=== PATIENT | male | born 1990 | race African-American/Black ===

== ENCOUNTER 2022-02-17 20:17 | Observation (INO) ==
[2022-02-17] MEDS ORDERED: SODIUM CHLORIDE 0.9% 1000ML 1,000 ML IV ONE (20:24)
--- NOTE | 2022-02-17 20:28 | Emergency Department Note ---
Impression & Plan Substernal chest pain, Elevated troponin, Swelling of calf ED Provider Note Name: KE [id number] DEMOND Age: 31 Sex: M Arrives Via: Ambulance Informant: Patient, EMS ED Provider: Emiliano Sexton MD Chief Complaint: Chest Pain Impression: Chest pain Medical Decision Makin-year-old gentleman who reports a history of heart surgery though this is somewhat unclear and he does not recall what it was. He arrives for evaluation of chest pain and shortness of breath in the setting of left calf pain. Given the calf pain and swelling with his other symptoms and the fact he is in [facility] it was felt that a CT PE study was indicated without waiting for D-dimer. CT PE study is fortunately negative. Ultrasound of left leg reveals no DVT. Is unclear the cause of his calf swelling but he does have a slight bruise anterior it and this may just be trauma related. And is not compartment syndrome. As for the chest pain his EKG is normal however his initial troponin is elevated. It is not severely elevated but is above normal. With him not having any further chest pain and already having received aspirin I think is reasonable to hold off on heparin until further work-up is completed including a repeat troponin for cardiac rule out. Hospitalist was consulted for further management. Prior Medical Record and Triage/Nursing Notes reviewed by Me Additional history obtained from chart Differentials:Cardiac ischemia, aortic dissection, pulmonary embolism, pneumothorax, pneumonia, pericarditis, myocarditis, esophageal rupture, GERD, cholecystitis, pancreatitis, musculoskeletal, as well as other pathologies. Vital Signs: reviewed and remarkable for no significant abnormalities Labs:Reviewed and remarkable for elevated troponin Imaging:CTA chest no acute findings as per radiology, ultrasound left lower leg no evidence of DVT per radiology EKG:Per My Interpretation: Indication Chest Pain: NSR 71 bpm, qtc 415. No Ectopy. No Ischemia. Compared to EKG 04/06/19, no significant changes. Cardiac/Tele Monitoring: Cardiac Monitoring: An Order was placed for continuous cardiac monitoring. The monitor shows a rate of 70 with a normal sinus rhythm. Consults:Dr Monique Roe Hospitalist Plan: Disposition:Hospitalization. Condition: Good History of Present Illness: 31-year-old gentleman arrives for evaluation of chest pain. Patient notes on and off vague chest pains for the last few weeks and months. Over the last few days significantly worsening chest pain or shortness of breath. He notes its worse when he ambulates. Today he noted increasing swelling in the left leg. He notes the pain is primarily in the left calf. It hurts to walk. [facility] and he was sent here for further evaluations. He received aspirin prior to arrival. EMS noted that with exertion patient's oxygen dropped into the 80s and thus they put him on 2 L nasal cannula with improvement. Patient denies any current chest pain. He states his leg just feels slightly numb at the moment. He denies any abdominal pain, back pain, syncope, rashes, fevers, chills, he adache, neck pain or other signs or symptoms. He states he has not been in any recent fights or had any trauma. He denies a history of blood clots. ROS: See above HPI for pertinent positives & negatives. A total of 10 systems reviewed and were otherwise negative. 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 EYES: No scleral icterus, unremarkable pupils. ENT: Mucous membranes moist, no nasal congestion. NECK: No masses appreciated, nomeningismus, trachea is midline. RESPIRATORY: No dyspnea. Clear to auscultation and equal bilaterally. No wheeze, no rhonchi. CARDIOVASCULAR: Regular rate and rhythm.No murmurs, rubs, gallops appreciated. GASTROINTESTINAL: Abdomen soft, non-tender, no peritonitis.Bowel sounds positive.No masses appreciated. BACK: No midline tenderness, no CVA tenderness EXTREMITIES: Swollen tender left calf without compartment syndrome by exam, good distal sensation & pulses. Just anterior to this is age indeterminant bruise. Normal motion all extremities, no cyanosis NEUROLOGIC: Alert and oriented, no acute motor or sensory deficits, no focal weakness, cranial nerves grossly intact. SKIN: No rash, no jaundice, no diaphoresis. PSYCH: Appropriate GCS: 15 ED Course: Times/Reassessments: Sedation plan given the elevated troponin and chest pain earlier Emiliano Sexton MD Past Med/Surg History Medical History (Updated 02/18/22 @ 01:02 by Emiliano Sexton MD) Anxiety Surgical History (Updated 04/06/19 @ 13:43 by Diana Engel) History of hand surgery Social History Smoking Status: Never smoker Preferred Language: Estonian Feels Safe at Home: Yes Allergies Allergies Allergy/AdvReac Type Severity Reaction Status Date / Time No Known Allergies Allergy Unverified 02/17/22 21:44 Home Meds Home Medications Medication Instructions Recorded Confirmed diclofenac sodium 25 mg 25 mg PO TID PRN 02/17/22 02/17/22 tablet,delayed release lisinopril 5 mg tablet 5 mg PO DAILY 02/17/22 02/17/22 mirtazapine 30 mg tablet 30 mg PO HS 02/17/22 02/17/22 olanzapine 15 mg tablet 15 mg PO HS 02/17/22 02/17/22 paroxetine HCl 20 mg tablet 20 mg PO DAILY 02/17/22 02/17/22 paroxetine HCl 30 mg tablet 30 mg PO HS 02/17/22 02/17/22 Results & Data (ED) Vital Signs Vital Signs - 24 hr 02/17/22 20:21 02/17/22 20:30 02/17/22 21:30 Temperature 37.1 C Temperature Source Oral Pulse Rate 78 76 68 Pulse Rate from SpO2 Sensor 69 Respiratory Rate 18 19 15 Respiratory Effort / Characteristics Non-Labored Spontaneous Respiratory Depth Normal Respiratory Pattern Regular Blood Pressure 168/90 H 145/78 H 148/72 H Blood Pressure Mean 116 100 97 Pulse Oximetry 97 98 98 Oxygen Delivery Method Room Air Sepsis Recent Fever Within 48 Hours No Sepsis New/Unexplained Change in Mental Status N/A Sepsis Action Taken by Nursing No Action Required 02/17/22 22:06 02/17/22 22:12 02/17/22 22:30 Temperature Temperature Source Pulse Rate 71 61 68 Pulse Rate from SpO2 Sensor 66 Respiratory Rate 20 13 13 Respiratory Effort / Characteristics Respiratory Depth Respiratory Pattern Blood Pressure 124/73 124/73 115/68 Blood Pressure Mean 90 90 83 Pulse Oximetry 95 99 Oxygen Delivery Method Sepsis Recent Fever Within 48 Hours Sepsis New/Unexplained Change in Mental Status Sepsis Action Taken by Nursing 02/17/22 23:00 02/17/22 23:30 02/18/22 00:00 Temperature Temperature Source Pulse Rate 73 65 65 Pulse Rate from SpO2 Sensor 73 65 65 Respiratory Rate 19 16 15 Respiratory Effort / Characteristics Respiratory Depth Respiratory Pattern Blood Pressure 123/82 120/72 Blood Pressure Mean 95 88 Pulse Oximetry 99 100 100 Oxygen Delivery Method Sepsis Recent Fever Within 48 Hours Sepsis New/Unexplained Change in Mental Status Sepsis Action Taken by Nursing Laboratory Data Result diagrams: 02/17/22 20:30 02/17/22 20:30 Lab Results 02/17/22 02/17/22 02/17/22 Range/Units 20:30 20:30 20:30 WBC 7.87 (4.8-10.8) K/uL RBC 4.81 (4.7-6.1) M/uL Hgb 14.8 (14.0-18.0) g/dL POC Hgb (14.0-18.0) g/dl Hct 42.0 (42-52) % POC Hct (42-52) % MCV 87.3 (80-100) fL MCH 30.8 (25-34) pg MCHC 35.2 (32-36) g/dL RDW Std Deviation 46.5 H (36.4-46.3) fL RDW Coeff of Ibeth 14.5 (11.5-14.5) % Plt Count 236 (130-400) K/uL MPV 10.3 (7.4-10.4) fL Immature Gran % (Auto) 0.1 % Neut % (Auto) 61.3 % Lymph % (Auto) 30.9 % [place] % (Auto) 5.3 % Eos % (Auto) 2.3 % Baso % (Auto) 0.1 % Neut # (Auto) 4.82 (1.4-6.5) K/uL Lymph # (Auto) 2.43 (1.2-3.4) K/uL [place] # (Auto) 0.42 (0.11-0.59) K/uL Eos # (Auto) 0.18 (0-0.5) K/uL Baso # (Auto) 0.01 (0-0.2) K/uL Immature Gran # (Auto) 0.01 (0.00-0.02) K/uL APTT 25.3 (21.0-31.0) Seconds PTT Ratio 0.9 POC Sodium (135-144) mmol/L Sodium 135 L (136-145) mmol/L POC Potassium (3.3-5.0) mmol/L Potassium 4.0 (3.5-5.1) mmol/L POC Chloride (101-112) mmol/L Chloride 101 (98-107) mmol/L Carbon Dioxide 25 (21-32) mmol/L POC Total CO2 (24-31) mmol/L Anion Gap 9 (3-11) POC Anion Gap (16-25) mmol/L POC BUN (7-18) mg/dl BUN 14 (6-23) mg/dl Creatinine 1.21 (0.6-1.4) mg/dl POC Creatinine (0.6-1.3) mg/dl Est Cr Clr Drug Dosing 84.0 ml/min Est GFR ( Amer) 90.6 ml/min Est GFR (Non-Af Amer) 78.2 ml/min BUN/Creatinine Ratio 11.6 (10-20) Glucose 88 (70-99(Fasting)) mg/dl POC Glucose (other) (70-99) mg/dl Calcium 9.7 (8.5-10.1) mg/dl POC Ioniz Calcium [place] (1.12-1.32) mmol/l Magnesium 2.0 (1.7-2.4) mg/dl Total Bilirubin 0.6 (0.2-1.0) mg/dl Direct Bilirubin 0.1 (0-0.2) mg/dl AST 29 (13-39) U/L ALT 28 (7-52) U/L Alkaline Phosphatase 85 (34-104) U/L Troponin I High Sens 35.4 H (0-20) pg/ml Total Protein 8.1 (6.0-8.3) gm/dl Albumin 4.7 (3.4-5.0) gm/dl SARS-CoV-2, RNA, NAAT (NEGATIVE) 02/17/22 02/17/22 02/18/22 Range/Units 20:49 23:00 00:00 WBC (4.8-10.8) K/uL RBC (4.7-6.1) M/uL Hgb (14.0-18.0) g/dL POC Hgb 16.0 (14.0-18.0) g/dl Hct (42-52) % POC Hct 47 (42-52) % MCV (80-100) fL MCH (25-34) pg MCHC (32-36) g/dL RDW Std Deviation (36.4-46.3) fL RDW Coeff of Ibeth (11.5-14.5) % Plt Count (130-400) K/uL MPV (7.4-10.4) fL Immature Gran % (Auto) % Neut % (Auto) % Lymph % (Auto) % [place] % (Auto) % Eos % (Auto) % Baso % (Auto) % Neut # (Auto) (1.4-6.5) K/uL Lymph # (Auto) (1.2-3.4) K/uL [place] # (Auto) (0.11-0.59) K/uL Eos # (Auto) (0-0.5) K/uL Baso # (Auto) (0-0.2) K/uL Immature Gran # (Auto) (0.00-0.02) K/uL APTT (21.0-31.0) Seconds PTT Ratio POC Sodium 138 (135-144) mmol/L Sodium (136-145) mmol/L POC Potassium 3.9 (3.3-5.0) mmol/L Potassium (3.5-5.1) mmol/L POC Chloride 103 (101-112) mmol/L Chloride (98-107) mmol/L Carbon Dioxide (21-32) mmol/L POC Total CO2 25 (24-31) mmol/L Anion Gap (3-11) POC Anion Gap 15.0 L (16-25) mmol/L POC BUN 14 (7-18) mg/dl BUN (6-23) mg/dl Creatinine (0.6-1.4) mg/dl POC Creatinine 1.1 (0.6-1.3) mg/dl Est Cr Clr Drug Dosing ml/min Est GFR ( Amer) ml/min Est GFR (Non-Af Amer) ml/min BUN/Creatinine Ratio (10-20) Glucose (70-99(Fasting)) mg/dl POC Glucose (other) 94 (70-99) mg/dl Calcium (8.5-10.1) mg/dl POC Ioniz Calcium Kareem 1.14 (1.12-1.32) mmol/l Magnesium (1.7-2.4) mg/dl Total Bilirubin (0.2-1.0) mg/dl Direct Bilirubin (0-0.2) mg/dl AST (13-39) U/L ALT (7-52) U/L Alkaline Phosphatase (34-104) U/L Troponin I High Sens 29.0 H (0-20) pg/ml Total Protein (6.0-8.3) gm/dl Albumin (3.4-5.0) gm/dl SARS-CoV-2, RNA, NAAT NEGATIVE (NEGATIVE) Administered Medications Discontinued Medications Sodium Chloride (Nss 1000ml) 1,000 mls @ 999 mls/hr IV .Q1H1M ONE Stop: 02/17/22 21:24 Last Infusion: 02/17/22 22:01 Dose: 0 mls/hr Documented by: [id number] Admin: 02/17/22 21:00 Dose: 999 mls/hr Documented by: [id number] Ioversol (Optiray 320 125ml) 120 ml IV ONCE ONE Stop: 02/17/22 21:10 Last Admin: 02/17/22 21:10 Dose: 120 ml Documented by: [id number] Discharge Plan Visit Data Chief Complaint: Leg Injury/Pain Stated Complaint: Chest Pain, L Leg Pain, Swelling ED Provider: Emiliano Sexton Discharge Problem: Substernal chest pain, Elevated troponin, Swelling of calf Forms [facility] Prescriptions Prescriptions: No Action paroxetine HCl 30 mg Tablet 30 mg PO HS RF: 0 paroxetine HCl 20 mg Tablet 20 mg PO DAILY RF: 0 mirtazapine 30 mg Tablet 30 mg PO HS RF: 0 diclofenac sodium [Voltaren] 25 mg Tablet,Delayed Release (Dr/Ec) 25 mg PO TID PRN (Reason: Pain) RF: 0 olanzapine 15 mg Tablet 15 mg PO HS RF: 0 lisinopril 5 mg Tablet 5 mg PO DAILY RF: 0 Referrals Referrals: Chantal YNAES [Primary Care Provider] -
[2022-02-17 20:48] LABS: Basophils # (auto) 0.01 K/uL (0-0.2); Basophils % (auto) 0.1 %; Eosinophils # (auto) 0.18 K/uL (0-0.5); Eosinophils % (auto) 2.3 %; Hemoglobin 14.8 g/dL (14.0-18.0); Immature Granulocytes # (auto) 0.01 K/uL (0.00-0.02); Immature Granulocytes % (auto) 0.1 %; Lymphocytes # (auto) 2.43 K/uL (1.2-3.4); Lymphocytes % (auto) 30.9 %; Mean Corpuscular Hemoglobin 30.8 pg (25-34); Mean Corpuscular Hgb Conc 35.2 g/dL (32-36); Mean Corpuscular Volume 87.3 fL (80-100); Mean Platelet Volume 10.3 fL (7.4-10.4); Monocytes # (auto) 0.42 K/uL (0.11-0.59); Monocytes % (auto) 5.3 %; Neutrophils # (auto) 4.82 K/uL (1.4-6.5); Neutrophils % (auto) 61.3 %; Platelet Count 236 K/uL (130-400); RDW Coefficient of Variation 14.5 % (11.5-14.5); RDW Standard Deviation 46.5 fL (36.4-46.3); Red Blood Count 4.81 M/uL (4.7-6.1); White Blood Count 7.87 K/uL (4.8-10.8)
[2022-02-17 21:02] LABS: iSTAT Creatinine 1.1 mg/dl (0.6-1.3); iSTAT Ionized Calcium 1.14 mmol/l (1.12-1.32); iSTAT Potassium 3.9 mmol/L (3.3-5.0)
[2022-02-17] MEDS ORDERED: OPTIRAY 320 125ml IV ONE (21:09)
[2022-02-17 21:15] LABS: Albumin Level 4.7 gm/dl (3.4-5.0); BUN Creatinine Ratio 11.6 (10-20); Bilirubin Direct 0.1 mg/dl (0-0.2); Bilirubin,Total 0.6 mg/dl (0.2-1.0); Calcium 9.7 mg/dl (8.5-10.1); Est GFR (African American) 90.6 ml/min; Est GFR (Non-African American) 78.2 ml/min; Total Protein 8.1 gm/dl (6.0-8.3)
[2022-02-17 21:18] LABS: Troponin I High Sensitivity 35.4 pg/ml (0-20)
[2022-02-17 23:52] LABS: Partial Thromboplastin Ratio 0.9; Partial Thromboplastin Time 25.3 Seconds (21.0-31.0)
[2022-02-18] MEDS ORDERED: ACETAMINOPHEN 325 MG TAB PO STA (01:01)
--- NOTE | 2022-02-18 01:01 | History & Physical Report ---
Date of Service February 18, 2022 Assessment & Plan (1) Substernal chest pain: Plan: With troponin elevation 8 months duration as per patient Possible ACS hypertension, slightly elevated upon arrival at the ER Abdominal pain from constipation anxiety/mood disorder, at baseline chronic L GIB secondary to internal hemorrhoids, patient hemodynamically stable Focal cellulitis, LLE, no sepsis for now past tobacco abuse OBS PCU Aspirin for CAD prevention TTE, Cardiology consult Re: Chest pain with troponin elevation Bowel regimen Doxycycline for focal LLE cellulitis DVT prophylaxis. SCDs Re: L GIB, left calf bruising Full code Text document was generated using [employer] voice recognition software. It may contain grammatical or spelling errors. Kindly contact undersigned for clarification of any documentation item in question. History of Present Illness Chief Complaint: Chest pain Primary Care Provider: FARZANA Cornejo History obtained from patient and records. Medical history significant for hypertension, anxiety/mood disorder, internal hemorrhoids, past tobacco abuse. 8 months history of intermittent achy chest pain complaints with occasional shortness of breath lasting less than an hour. Can happen even at rest. Symptoms almost daily. 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 He was told that he had abnormal heartbeat. No cardiology consultations as per patient. Abdominal pain complaints in the last few weeks with constipation. Daily hematochezia attributed to internal hemorrhoids from outpatient colonoscopy from 2019 as per patient. Patient claims he lost 10 pounds in 2 weeks. Patient also not this left leg swelling and bruising. Not sure about trauma. Patient brought to the ER for evaluation. Currently chest pain-free. 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 [facility] Allergies Allergy/AdvReac Type Severity Reaction Status Date / Time No Known Allergies Allergy Unverified 02/17/22 21:44 Home Medications Medication Instructions Recorded Confirmed Type diclofenac sodium 25 mg 25 mg PO TID PRN 02/17/22 02/17/22 History tablet,delayed release lisinopril 5 mg tablet 5 mg PO DAILY 02/17/22 02/17/22 History mirtazapine 30 mg tablet 30 mg PO HS 02/17/22 02/17/22 History olanzapine 15 mg tablet 15 mg PO HS 02/17/22 02/17/22 History paroxetine HCl 20 mg tablet 20 mg PO DAILY 02/17/22 02/17/22 History paroxetine HCl 30 mg tablet 30 mg PO HS 02/17/22 02/17/22 History Past Med/Surg History Medical History (Updated 02/18/22 @ 01:02 by Emiliano Sexton MD) Anxiety Surgical History (Updated 04/06/19 @ 13:43 by Diana Engel) History of hand surgery Social History Smoking Status: Former smoker Hx Alcohol Use: No Hx Substance Use: Yes Preferred Language: Citizen Of [place] Communication Ability: Effective Hair Stylist Required: No Beliefs That Will Affect Care: None Current Living Situation: Other Current Living Situation Comment: Inmate Feels Safe at Home: Yes Review of Systems Review of Systems: As per HPI, all other systems reviewed and negative Physical Exam Physical Exam: GENERAL: Slightly anxious, slightly uncomfortable, no respiratory distress SKIN: Normal color, warm HEENT: [place] palpebral conjunctivae, no ptosis, dry buccal mucosa NECK : Supple, no tenderness CHEST : CTA, no tenderness HEART : RRR, no obvious murmurs ABDOMEN: Some distention, central abdominal tenderness EXTREMITIES : Focal LLE erythema anterior aspect with bruising noted over the calf, minimal LLE tenderness NEUROLOGIC : Coherent, no facial asymmetry, no other gross focality Results & Data Results & Data ([facility]) Vital Signs (Past 12 Hours) Vital Signs Temp Pulse Resp BP Pulse Ox 02/18/22 00:00 65 15 100 02/17/22 23:30 65 16 120/72 100 02/17/22 23:00 73 19 123/82 99 02/17/22 22:30 68 13 115/68 99 02/17/22 22:12 61 13 124/73 02/17/22 22:06 71 20 124/73 95 02/17/22 21:30 68 15 148/72 H 98 02/17/22 20:30 76 19 145/78 H 98 02/17/22 20:21 37.1 C 78 18 168/90 H 97 Laboratory Results Laboratory Results WBC 7.87 K/uL (4.8-10.8) 02/17/22 20:30 RBC 4.81 M/uL (4.7-6.1) 02/17/22 20:30 Hgb 14.8 g/dL (14.0-18.0) 02/17/22 20:30 POC Hgb 16.0 g/dl (14.0-18.0) 02/17/22 20:49 Hct 42.0 % (42-52) 02/17/22 20:30 POC Hct 47 % (42-52) 02/17/22 20:49 MCV 87.3 fL (80-100) 02/17/22 20: MCH 30.8 pg (25-34) 02/17/22 20: MCHC 35.2 g/dL (32-36) 02/17/22 20: RDW Std Deviation 46.5 fL (36.4-46.3) H 02/17/22: RDW Coeff of Ibeth 14.5 % (11.5-14.5) 02/17/22 20: Plt Count 236 K/uL (130-400) 02/17/22 20: MPV 10.3 fL (7.4-10.4) 02/17/22 20: Immature Gran % (Auto) 0.1 % 02/17/22 20:30 Neut % (Auto) 61.3 % 02/17/22 20:30 Lymph % (Auto) 30.9 % 02/17/22 20:30 [place] % (Auto) 5.3 % 02/17/22 20:30 Eos % (Auto) 2.3 % 02/17/22 20:30 Baso % (Auto) 0.1 % 02/17/22 20:30 Neut # (Auto) 4.82 K/uL (1.4-6.5) 02/17/22 20: Lymph # (Auto) 2.43 K/uL (1.2-3.4) 02/17/22 20:30 [place] # (Auto) 0.42 K/uL (0.11-0.59) 02/17/22 20:30 Eos # (Auto) 0.18 K/uL (0-0.5) 02/17/22 20:30 Baso # (Auto) 0.01 K/uL (0-0.2) 02/17/22 20:30 Immature Gran # (Auto) 0.01 K/uL (0.00-0.02) 02/17/22 20:30 APTT 25.3 Seconds (21.0-31.0) 02/17/22 20:30 PTT Ratio 0.9 02/17/22 20:30 POC Sodium 138 mmol/L (135-144) 02/17/22 20:49 Sodium 135 mmol/L (136-145) L 02/17/22 20:30 POC Potassium 3.9 mmol/L (3.3-5.0) 02/17/22 20:49 Potassium 4.0 mmol/L (3.5-5.1) 02/17/22 20:30 POC Chloride 103 mmol/L (101-112) 02/17/22 20:49 Chloride 101 mmol/L (98-107) 02/17/22 20:30 Carbon Dioxide 25 mmol/L (21-32) 02/17/22 20:30 POC Total CO2 25 mmol/L (24-31) 02/17/22 20:49 Anion Gap 9 (3-11) 02/17/22 20:30 POC Anion Gap 15.0 mmol/L (16-25) L 02/17/22 20:49 POC BUN 14 mg/dl (7-18) 02/17/22 20:49 BUN 14 mg/dl (6-23) 02/17/22 20:30 Creatinine 1.21 mg/dl (0.6-1.4) 02/17/22 20:30 POC Creatinine 1.1 mg/dl (0.6-1.3) 02/17/22 20:49 Est Cr Clr Drug Dosing 84.0 ml/min 02/17/22 20:30 Est GFR ( Amer) 90.6 ml/min 02/17/22 20:30 Est GFR (Non-Af Amer) 78.2 ml/min 02/17/22 20:30 BUN/Creatinine Ratio 11.6 (10-20) 02/17/22 20:30 Glucose 88 mg/dl (70-99(Fasting)) 02/17/22 20:30 POC Glucose (other) 94 mg/dl (70-99) 02/17/22 20:49 Calcium 9.7 mg/dl (8.5-10.1) 02/17/22 20:30 POC Ioniz Calcium Kareem 1.14 mmol/l (1.12-1.32) 02/17/22 20:49 Magnesium 2.0 mg/dl (1.7-2.4) 02/17/22 20:30 Total Bilirubin 0.6 mg/dl (0.2-1.0) 02/17/22 20:30 Direct Bilirubin 0.1 mg/dl (0-0.2) 02/17/22 20:30 AST 29 U/L (13-39) 02/17/22 20:30 ALT 28 U/L (7-52) 02/17/22 20:30 Alkaline Phosphatase 85 U/L (34-104) 02/17/22 20:30 Troponin I High Sens 29.0 pg/ml (0-20) H 02/18/22 00:00 Total Protein 8.1 gm/dl (6.0-8.3) 02/17/22 20: Albumin 4.7 gm/dl (3.4-5.0) 02/17/22 20:30 SARS-CoV-2, RNA, NAAT NEGATIVE (NEGATIVE) 02/17/22 23:[address] chest initial read: The pulmonaryarterial tree iswell opacified with contrast. No pulmonaryemboli are identified. The thoracic aorta is nondilated. There is no aneurysmor dissection. The heart is not enlarged. No pericardial effusion. No mediastinal or axillarylymph adenopathyor mass. The lungs are well inflated and clear. No infiltrate or consolidation is seen. No pneumothorax or pleural effusion. Skeletal structures appear unremarkable. CT abdomen pelvis initial read No acute findings in the abdomen and pelvis on noncontrast CT study. No evidence of bowel obstruction or perforation. No evidence of acute appendicitis. Limited evaluation of pelvic region due to high densityexcreted contrast in the urinarybladder and resultant streak artifact. CT left lower leg initial read: No evidence of acute fracture or traumatic malalignment. No destructive osseous lesion. Soft tissue edemawith subcutaneous fat stranding in lateral aspect of the proximal leg. No discrete fluid collection visualized. No soft tissue gas. Normal bulk of the visualized muscles. No knee joint effusion. LLE venous Dopplers initial read: No evidence of deep venous thrombosis. EKG as per my interpretation: Rate 70, NSR, normal axis, no ischemia
[2022-02-18] MEDS ORDERED: traMADol HCL 50 MG TABLET PO PRN (01:06)
[2022-02-18] MEDS ORDERED: LORazepam 2 MG/1 ML VIAL IV PRN (01:06)
[2022-02-18] MEDS ORDERED: PROMETHAZINE HCL 12.5 MG in SODIUM CHLORIDE 0.9% 50 ML IV PRN (01:06)
[2022-02-18] MEDS ORDERED: MoRPHine SULFATE 2 MG/ML CARP IV PRN (01:06)
[2022-02-18] MEDS ORDERED: SODIUM CHLORIDE 0.9% 1000ML 1,000 ML IV ONE (01:07)
[2022-02-18] MEDS ORDERED: NITROGLYCERIN SL 0.4 MG/TAB TAB SL PRN (02:41)
[2022-02-18] MEDS ORDERED: ACETAMINOPHEN 325 MG TAB PO PRN (02:41)
[2022-02-18 03:11] LABS: Appearance Urine Clear (Clear); Bilirubin Urine Negative (Negative); Blood Urine Negative (Negative); Color Urine Yellow; Glucose Urine UA Negative (Negative); Ketones Urine Negative (Negative); Leukocyte Esterase Urine Negative (Negative); Nitrite Urine Negative (Negative); Protein Urine Negative (Negative); Specific Gravity Urine > 1.045 (1.000-1.030); Urobilinogen Urine Negative (Negative); pH Urine 5.5 (4.5-7.5)
[2022-02-18] MEDS ORDERED: POLYETHYLENE (MIRALAX) 17 GM PACK PO PRN (05:33)
[2022-02-18] MEDS: DOXYCYCLINE HYCLATE 100 MG CAP PO SCH ×2 (05:38→22:36)
[2022-02-18] MEDS: ASPIRIN 81 MG ECTAB PO SCH (05:38)
[2022-02-18] MEDS ORDERED: DOCUSATE SODIUM/SENNA 50/8.6MG TAB PO STA (06:06)
--- NOTE | 2022-02-18 07:02 | Ultrasound Report ---
LEFT LOWER EXTREMITY VENOUS DOPPLER CLINICAL HISTORY: left calf swelling, pain COMPARISON STUDY: No previous studies for comparison. TECHNIQUE: Sonography of the deep venous system of the left lower extremity was performed. Compressi on and augmentation were evaluated. FINDINGS: The left common femoral, superficial femoral and popliteal veins were compressible. Augmen tation was normal. Flow was shown within the deep calf vessels. IMPRESSION: No evidence of deep venous thrombus within the left lower extremity. ACT 112: Negative or not required by law. Electronically signed by: Zain Skaggs M.D. 02/18/2022 7:00 AM
[2022-02-18 07:29] LABS: Basophils # (auto) 0.02 K/uL (0-0.2); Basophils % (auto) 0.4 %; Eosinophils # (auto) 0.22 K/uL (0-0.5); Eosinophils % (auto) 4.7 %; Hematocrit (blood only) 39.4 % (42-52); Hemoglobin 13.5 g/dL (14.0-18.0); Immature Granulocytes # (auto) 0.01 K/uL (0.00-0.02); Immature Granulocytes % (auto) 0.2 %; Lymphocytes # (auto) 2.05 K/uL (1.2-3.4); Lymphocytes % (auto) 43.5 %; Mean Corpuscular Hemoglobin 30.3 pg (25-34); Mean Corpuscular Hgb Conc 34.3 g/dL (32-36); Mean Corpuscular Volume 88.3 fL (80-100); Mean Platelet Volume 10.7 fL (7.4-10.4); Monocytes # (auto) 0.46 K/uL (0.11-0.59); Monocytes % (auto) 9.8 %; Neutrophils # (auto) 1.95 K/uL (1.4-6.5); Neutrophils % (auto) 41.4 %; Platelet Count 210 K/uL (130-400); RDW Coefficient of Variation 14.9 % (11.5-14.5); RDW Standard Deviation 48.4 fL (36.4-46.3); Red Blood Count 4.46 M/uL (4.7-6.1); White Blood Count 4.71 K/uL (4.8-10.8)
--- NOTE | 2022-02-18 07:34 | CT Scan Report ---
CT angio chest PE protocol CLINICAL HISTORY: Chest pain COMPARISON STUDY: No previous studies for comparison. CT DOSE: 416.27 mGy.cm TECHNIQUE: CT Angio of the chest was performed.followed by image post processing with coronal, and s agittal MIP reformats. Contrast Volume: Optiray 320, 120 ml FINDINGS: Vasculature: There is homogeneous perfusion of the pulmonary vasculature bilaterally. No intraluminal filling defects or evidence for pulmonary embolus is seen. Airway: The airway is clear. No endobronchial lesion is identified. Lungs: The lungs are clear of acute alveolar opacities, air bronchograms or pulmonary nodules. Pleura: There is no evidence for pleural effusion. There is no evidence for pneumothorax. Mediastinum: There is no evidence for pathologic adenopathy. The heart size is within normal limits. The thoracic aorta is within normal limits. There is no evidence for pericardial effusion. Upper abdomen:The adrenal glands are normal bilaterally. Osseous structures: There is no acute osseous pathology. Impression: 1. No CTA evidence for pulmonary embolus. 2. No acute chest disease. ACT 112: Negative or not required by law. Electronically signed by: Jerry Jolly M.D. 02/18/2022 7:32 AM
[2022-02-18 07:51] LABS: BUN Creatinine Ratio 9.7 (10-20); Calcium 9.1 mg/dl (8.5-10.1); Chol HDL Ratio 2.3 (0-5); Est GFR (African American) 98.4 ml/min; Est GFR (Non-African American) 84.9 ml/min; Potassium 4.1 mmol/L (3.5-5.1)
--- NOTE | 2022-02-18 08:02 | CT Scan Report ---
CT OF THE ABDOMEN AND PELVIS WITHOUT CONTRAST CLINICAL HISTORY: Abdominal pain, nausea and vomiting. COMPARISON STUDY: No previous studies for comparison. TECHNIQUE: Axial images of the abdomen and pelvis were obtained without IV contrast. Images were revi ewed in the axial, sagittal, and coronal planes. Automated exposure control was utilized for the niranjan dy. A dose lowering technique was utilized adhering to the principles of ALARA. FINDINGS: Lung bases are unremarkable. No pneumatosis, free air or portal venous gas is present. Sens itivity for detection of urinary calculi is diminished given excreted contrast within the collecting systems, ureters and bladder. There is no hydronephrosis. There is no perinephric infiltration. Evalu ation of the abdomen and pelvis is suboptimal on this unenhanced exam. The liver, spleen, adrenal gla nds, kidneys and pancreas are unremarkable. There is no biliary or pancreatic ductal dilatation. Ther e is no evidence for a bowel obstruction. The appendix is normal. There is no lymphadenopathy or asci alber. No acute fracture within the visualized skeletal structures. IMPRESSION: 1. No acute process within the abdomen or pelvis on unenhanced exam. 2. Normal appendix. No bowel obstruction. 3. Excreted contrast within the collecting systems, ureters and bladder from recent chest CT. ACT 112: Negative or not required by law. Electronically signed by: Zain Skaggs M.D. 02/18/2022 8:01 AM
--- NOTE | 2022-02-18 08:15 | CT Scan Report ---
CT tib/fib LT wo con CLINICAL HISTORY: swelling/bruising COMPARISON STUDY: No previous studies for comparison. TECHNIQUE: Axial images of the left tibia and fibula were obtained without IV contrast. Sagittal and coronal reconstructions were viewed. Automated exposure control was utilized for the study. A dose l owering technique was utilized adhering to the principles of ALARA. FINDINGS: There is no acute fracture within the left tibia or fibula. No osseous lesion is identified . No CT evidence for stress fracture. Note is made of nonspecific subcutaneous stranding of the later al proximal left lower leg, at the level the proximal fibula. No fluid collection is identified. No s oft tissue gas is noted. No intramuscular or interfascial fluid is noted. Alignment of the left knee and left ankle is anatomic. Talar dome is intact. IMPRESSION: 1. No osseous abnormality within the left tibia or fibula. No fracture. 2. Mild nonspecific stranding of the lateral proximal left lower leg, as described above. No associat ed fluid collection. No soft tissue gas. ACT 112: Negative or not required by law. Electronically signed by: Zain Skaggs M.D. 02/18/2022 8:13 AM
[2022-02-18] MEDS: lisinopril 5 MG TAB PO SCH (09:15)
--- NOTE | 2022-02-18 09:40 | Cardiology Consultation ---
Date of Consultation February 18, 2022 Assessment & Plan (1) Substernal chest pain: (2) Elevated troponin: (3) Swelling of calf: The patient's chest pain is atypical and has been present for months. The patient's echocardiogram reveals normal left ventricular function and no wall motion abnormalities. No significant valvular pathology and normal right heart. His EKG is within normal limits. He has minimal risk factors for ischemic heart disease. I would test him with a regular exercise treadmill study however, he does have left leg discomfort of uncertain origin. Therefore, I believe it is best that we perform a dobutamine stress echocardiogram. If that study is negative then I do not believe any additional cardiac testing is indicated at this time. History of Present Illness Attending Physician: Dariusz Fortune MD History of Present Illness This is a 31-year-old incarcerated patient who has been having chest discomfort for several months. It is atypical and that it is not related to activity. He denies progressive shortness of breath. He has had no tachycardia or irregular heartbeat. He denies dizziness or lightheadedness. His EKG on presentation is normal. He had a resting echocardiogram that was normal without wall motion abnormalities or other findings that would suggest ischemic heart disease. He has minimal risk factors for heart disease. No strong family history. No history of diabetes or hypercholesterolemia. He did smoke previously but had stopped. His cardiac markers are borderline elevated. Allergies Allergy/AdvReac Type Severity Reaction Status Date / Time No Known Allergies Allergy Unverified 02/17/22 21:44 Home Medications Medication Instructions Recorded Confirmed Type diclofenac sodium 25 mg 25 mg PO TID PRN 02/17/22 02/17/22 History tablet,delayed release lisinopril 5 mg tablet 5 mg PO DAILY 02/17/22 02/17/22 History mirtazapine 30 mg tablet 30 mg PO HS 02/17/22 02/17/22 History olanzapine 15 mg tablet 15 mg PO HS 02/17/22 02/17/22 History paroxetine HCl 20 mg tablet 20 mg PO DAILY 02/17/22 02/17/22 History paroxetine HCl 30 mg tablet 30 mg PO HS 02/17/22 02/17/22 History Patient History Medical History Anxiety Surgical History History of hand surgery Social History Smoking Status: Former smoker Hx Alcohol Use: No Hx Substance Use: Yes Preferred Language: [place] Communication Ability: Effective Grounds Caretaker Required: No Beliefs That Will Affect Care: None Current Living Situation: Other Current Living Situation Comment: Inmate Feels Safe at Home: Yes Review of Systems Review of Systems: Review of Systems: See HPI for pertinent positives. All other 10 point review of systems are negative. Physical Exam Physical Exam: General: no acute distress and stated age Head: normocephalic, no masses, lesions, tenderness or abnormalities Eyes: conjunctiva are pink and non-injected, sclera clear Neck: supple, no adenopathy, no bruits, normal jugular venous pulse, no hepatojugular reflux Chest: normal shape and normal respiratory effort Lungs: clear to auscultation and percussion Cardiac Exam: - regular rate & rhythm, no murmurs gallops or rubs - normal S1, normal S2 Pulses: 2(+) throughout Abdomen: abdomen soft, non-tender, no abnormal masses and no hepatosplenomegaly Musculoskeletal: no gait disturbance, no joint inflammation, no deforming arthritis Extremities: no edema and no cyanosis Neuro: grossly normal exam Results & Data ([facility]) Vital Signs (Past 12 Hours) Vital Signs Temp Pulse Pulse Resp BP BP Pulse Ox 02/18/22 07:37 36.5 C 54 L 18 132/79 99 02/18/22 04:14 67 02/18/22 02:41 36.7 C 20 125/80 99 02/18/22 01:30 62 18 128/82 98 02/18/22 01:00 64 16 132/79 100 02/18/22 00:00 65 15 100 02/17/22 23:30 65 16 120/72 100 02/17/22 23:00 73 19 123/82 99 02/17/22 22:30 68 13 115/68 99 02/17/22 22:12 61 13 124/73 02/17/22 22:06 71 20 124/73 95 Laboratory Results Laboratory Results - last 24 hr 02/17/22 02/17/22 02/17/22 20:30 20:30 20:30 WBC 7.87 RBC 4.81 Hgb 14.8 POC Hgb Hct 42.0 POC Hct MCV 87.3 MCH 30.8 MCHC 35.2 RDW Std Deviation 46.5 H RDW Coeff of Ibeth 14.5 Plt Count 236 MPV 10.3 Immature Gran % (Auto) 0.1 Neut % (Auto) 61.3 Lymph % (Auto) 30.9 [place] % (Auto) 5.3 Eos % (Auto) 2.3 Baso % (Auto) 0.1 Neut # (Auto) 4.82 Lymph # (Auto) 2.43 [place] # (Auto) 0.42 Eos # (Auto) 0.18 Baso # (Auto) 0.01 Immature Gran # (Auto) 0.01 APTT 25.3 PTT Ratio 0.9 POC Sodium Sodium 135 L POC Potassium Potassium 4.0 POC Chloride Chloride 101 Carbon Dioxide 25 POC Total CO2 Anion Gap 9 POC Anion Gap POC BUN BUN 14 Creatinine 1.21 POC Creatinine Est Cr Clr Drug Dosing 84.0 Est GFR ( Amer) 90.6 Est GFR (Non-Af Amer) 78.2 BUN/Creatinine Ratio 11.6 Glucose 88 POC Glucose (other) Calcium 9.7 POC Ioniz Calcium Kareem Magnesium 2.0 Total Bilirubin 0.6 Direct Bilirubin 0.1 AST 29 ALT 28 Alkaline Phosphatase 85 Total Creatine Kinase Troponin I High Sens 35.4 H Total Protein 8.1 Albumin 4.7 Triglycerides Cholesterol LDL Cholesterol, Calc VLDL Cholesterol, Calc HDL Cholesterol Cholesterol/HDL Ratio Lipase Urine Color Urine Appearance Urine pH Ur Specific Noel Urine Protein Urine Glucose (UA) Urine Ketones Urine Blood Urine Nitrite Urine Bilirubin Urine Urobilinogen Ur Leukocyte Esterase SARS-CoV-2, RNA, NAAT 02/17/22 02/17/22 02/18/22 20:49 23:00 00:00 WBC RBC Hgb POC Hgb 16.0 Hct POC Hct 47 MCV MCH MCHC RDW Std Deviation RDW Coeff of Ibeth Plt Count MPV Immature Gran % (Auto) Neut % (Auto) Lymph % (Auto) [place] % (Auto) Eos % (Auto) Baso % (Auto) Neut # (Auto) Lymph # (Auto) [place] # (Auto) Eos # (Auto) Baso # (Auto) Immature Gran # (Auto) APTT PTT Ratio POC Sodium 138 Sodium POC Potassium 3.9 Potassium POC Chloride 103 Chloride Carbon Dioxide POC Total CO2 25 Anion Gap POC Anion Gap 15.0 L POC BUN 14 BUN Creatinine POC Creatinine 1.1 Est Cr Clr Drug Dosing Est GFR ( Amer) Est GFR (Non-Af Amer) BUN/Creatinine Ratio Glucose POC Glucose (other) 94 Calcium POC Ioniz Calcium Kareem 1.14 Magnesium Total Bilirubin Direct Bilirubin AST ALT Alkaline Phosphatase Total Creatine Kinase Troponin I High Sens 29.0 H Total Protein Albumin Triglycerides Cholesterol LDL Cholesterol, Calc VLDL Cholesterol, Calc HDL Cholesterol Cholesterol/HDL Ratio Lipase Urine Color Urine Appearance Urine pH Ur Specific Noel Urine Protein Urine Glucose (UA) Urine Ketones Urine Blood Urine Nitrite Urine Bilirubin Urine Urobilinogen Ur Leukocyte Esterase SARS-CoV-2, RNA, NAAT NEGATIVE 02/18/22 02/18/22 02/18/22 00:00 00:00 06:45 WBC 4.71 L RBC 4.46 L Hgb 13.5 L POC Hgb Hct 39.4 L POC Hct MCV 88.3 MCH 30.3 MCHC 34.3 RDW Std Deviation 48.4 H RDW Coeff of Ibeth 14.9 H Plt Count 210 MPV 10.7 H Immature Gran % (Auto) 0.2 Neut % (Auto) 41.4 Lymph % (Auto) 43.5 [place] % (Auto) 9.8 Eos % (Auto) 4.7 Baso % (Auto) 0.4 Neut # (Auto) 1.95 Lymph # (Auto) 2.05 [place] # (Auto) 0.46 Eos # (Auto) 0.22 Baso # (Auto) 0.02 Immature Gran # (Auto) 0.01 APTT PTT Ratio POC Sodium Sodium POC Potassium Potassium POC Chloride Chloride Carbon Dioxide POC Total CO2 Anion Gap POC Anion Gap POC BUN BUN Creatinine POC Creatinine Est Cr Clr Drug Dosing Est GFR ( Amer) Est GFR (Non-Af Amer) BUN/Creatinine Ratio Glucose POC Glucose (other) Calcium POC Ioniz Calcium Kareem Magnesium Total Bilirubin Direct Bilirubin AST ALT Alkaline Phosphatase Total Creatine Kinase 239 H Troponin I High Sens Total Protein Albumin Triglycerides Cholesterol LDL Cholesterol, Calc VLDL Cholesterol, Calc HDL Cholesterol Cholesterol/HDL Ratio Lipase 46 Urine Color Urine Appearance Urine pH Ur Specific Noel Urine Protein Urine Glucose (UA) Urine Ketones Urine Blood Urine Nitrite Urine Bilirubin Urine Urobilinogen Ur Leukocyte Esterase SARS-CoV-2, RNA, NAAT 02/18/22 02/18/22 06:45 Unknown WBC RBC Hgb POC Hgb Hct POC Hct MCV MCH MCHC RDW Std Deviation RDW Coeff of Ibeth Plt Count MPV Immature Gran % (Auto) Neut % (Auto) Lymph % (Auto) [place] % (Auto) Eos % (Auto) Baso % (Auto) Neut # (Auto) Lymph # (Auto) [place] # (Auto) Eos # (Auto) Baso # (Auto) Immature Gran # (Auto) APTT PTT Ratio POC Sodium Sodium 136 POC Potassium Potassium 4.1 POC Chloride Chloride 103 Carbon Dioxide 30 POC Total CO2 Anion Gap 3 POC Anion Gap POC BUN BUN 11 Creatinine 1.13 POC Creatinine Est Cr Clr Drug Dosing 90.0 Est GFR ( Amer) 98.4 Est GFR (Non-Af Amer) 84.9 BUN/Creatinine Ratio 9.7 L Glucose 78 POC Glucose (other) Calcium 9.1 POC Ioniz Calcium Kareem Magnesium Total Bilirubin Direct Bilirubin AST ALT Alkaline Phosphatase Total Creatine Kinase 240 H Troponin I High Sens Total Protein Albumin Triglycerides 35 Cholesterol 117 LDL Cholesterol, Calc 58 VLDL Cholesterol, Calc 7 HDL Cholesterol 52 Cholesterol/HDL Ratio 2.3 Lipase Urine Color Yellow Urine Appearance Clear Urine pH 5.5 Ur Specific Noel > 1.045 H Urine Protein Negative Urine Glucose (UA) Negative Urine Ketones Negative Urine Blood Negative Urine Nitrite Negative Urine Bilirubin Negative Urine Urobilinogen Negative Ur Leukocyte Esterase Negative SARS-CoV-2, RNA, NAAT Medications Administered Current Inpatient Medications Acetaminophen (Acetaminophen 325 Mg Tab) 650 mg PO Q4H PRN PRN Reason: Pain or Fever Stop: 03/20/22 02:40 Aspirin (Aspirin 81 Mg Ectab) 81 mg PO QAM [facility] Stop: 03/20/22 04:24 Last Admin: 02/18/22 05:38 Dose: 81 mg Documented by: Doxycycline Hyclate (Doxycycline Hyclate 100 Mg Cap) 100 mg PO BID [facility] Stop: 02/25/22 04:24 Last Admin: 02/18/22 05:38 Dose: 100 mg Documented by: Promethazine HCl 12.5 mg/ (Sodium Chloride) 50.5 mls @ 202 mls/hr IV Q6H PRN PRN Reason: Nausea And Vomiting Stop: 03/20/22 01:05 Sodium Chloride (Nss 1000ml) 1,000 mls @ 60 mls/hr IV .[id number] ONE Stop: 02/18/22 17:46 Last Admin: 02/18/22 03:57 Dose: 60 mls/hr Documented by: Lisinopril (Lisinopril 5 Mg Tab) 5 mg PO DAILY JULIAN Stop: 03/20/22 08:59 Last Admin: 02/18/22 09:15 Dose: 5 mg Documented by: Lorazepam (Lorazepam 2 Mg/1 Ml Vial) 0.25 mg IV Q4H PRN PRN Reason: Anxiety Stop: 03/20/22 01:05 Mirtazapine (Mirtazapine Tab 15 Mg Tab) 30 mg PO HS JULIAN Stop: 03/20/22 20:59 Morphine Sulfate (Morphine Sulfate 2 Mg/Ml Carp) 2 mg IV Q4H PRN PRN Reason: Pain Stop: 03/04/22 01:05 Nitroglycerin (Nitroglycerin Sl 0.4 Mg/Tab Tab) 0.4 mg SL Q5M PRN PRN Reason: Chest Pain Stop: 03/20/22 02:40 Olanzapine (Olanzapine 5 Mg Tablet) 15 mg PO HS JULIAN Stop: 03/20/22 20:59 Paroxetine HCl (Paroxetine Hcl 20 Mg Tab) 50 mg PO DAILY JULIAN Stop: 03/20/22 08:59 Polyethylene Glycol (Polyethylene (Miralax) 17 Gm Pack) 17 gm PO DAILY PRN PRN Reason: Constipation Stop: 03/20/22 05:32 Senna/Docusate Sodium (Docusate Sodium/Senna 50/8.6mg Tab) 1 tab PO QAM JULIAN Stop: 03/21/22 08:59 Tramadol HCl (Tramadol Hcl 50 Mg Tablet) 25 - 50 mg PO Q4H PRN PRN Reason: Pain Stop: 03/20/22 01:05
[2022-02-18] MEDS: PARoxetine HCL 20 MG TAB PO SCH (09:59)
--- NOTE | 2022-02-18 15:01 | Electrocardiogram Report ---
Test Reason : Blood Pressure : / mmHG Vent. Rate : 071 BPM Atrial Rate : 071 BPM P-R Int : 172 ms QRS Dur : 094 ms QT Int : 382 ms P-R-T Axes : 025 063 031 degrees QTc Int : 415 ms Normal sinus rhythm Normal ECG When compared with ECG of 06-APR-2019 13:16, No significant change was found Confirmed by Todd Wright ([id number]) on 02/18/2022 3:01:06 PM Referred By: Chantal [facility] Confirmed By:Todd Wright
--- NOTE | 2022-02-18 18:35 | Hospitalist Progress Note ---
Date of Service February 18, 2022 Assessment & Plan (1) Chest pain: Plan: Chest pain- atypical, seen by cardio, plan for stress test tomorrow. Trop mildly elevated but flat trend. Echo reviewed. Continue tele. Check UDS. Leg pain- unclear etiology. CT leg and US LE with no acute finding. States he had an impact yesterday during play- likely musculoskeletal. Tylenol, NSAIDs, Ice as needed. He was empirically started on doxy on admission for possible mild focal cellulitis but does not seem impressive and unable to explain his pain. Dispo- pending stress test tomorrow Admission and Anticipated Discharge Date Admission Date: February 18, 2022 Subjective States he is still having intermittent chest pain and left leg pain. No fever, chills, nausea, vomiting. Discussed test results and the plan. Physical Exam Physical Exam: General: Lying comfortably in bed, not in distress, on room air HEENT: EOMI, LUIS MIGUEL, MMM Chest: Clear breath sounds bilaterally, no wheezes or crackles CVS: Regular rate and rhythm, normal heart sounds, no murmur Abdomen: Soft, non tender, not distended, normal bowel sounds Neuro: Awake, alert, oriented, conversing well, non focal Extremities: No cyanosis, clubbing or edema He is from [facility] and cuffed. Officers at bedside. Results & Data Results & Data ([facility]) Vital Signs (Past 12 Hours) Vital Signs Temp Pulse Resp BP Pulse Ox 02/18/22 16:31 36.7 C 63 18 126/73 99 02/18/22 11:43 36.3 C L 56 L 18 133/81 100 02/18/22 07:37 36.5 C 54 L 18 132/79 99 Laboratory Results Short CBC 02/17/22 02/18/22 Range/Units 20:30 06:45 WBC 7.87 4.71 L (4.8-10.8) K/uL Hgb 14.8 13.5 L (14.0-18.0) g/dL Hct 42.0 39.4 L (42-52) % Plt Count 236 210 (130-400) K/uL BMP 02/17/22 02/18/22 20:30 06:45 Sodium 135 L 136 Potassium 4.0 4.1 Chloride 101 103 Carbon Dioxide 25 30 BUN 14 11 Creatinine 1.21 1.13 Glucose 88 78 Calcium 9.7 9.1 Cardiac Enzymes 02/18/22 02/18/22 Range/Units 00:00 06:45 Total Creatine Kinase 239 H 240 H (30-223) U/L Liver Function 02/17/22 Range/Units 20:30 Total Bilirubin 0.6 (0.2-1.0) mg/dl Direct Bilirubin 0.1 (0-0.2) mg/dl AST 29 (13-39) U/L ALT 28 (7-52) U/L Alkaline Phosphatase 85 (34-104) U/L Albumin 4.7 (3.4-5.0) gm/dl Urine 02/18/22 Range/Units Unknown Urine Color Yellow Urine Appearance Clear (Clear) Urine pH 5.5 (4.5-7.5) Ur Specific [place] > 1.045 H (1.000-1.030) Urine Protein Negative (Negative) Urine Glucose (UA) Negative (Negative) Diagnostic Findings Chest CTA 02/17/22 20:24 CT angio chest PE protocol CLINICAL HISTORY: Chest pain COMPARISON STUDY: No previous studies for comparison. CT DOSE: 416.27 mGy.cm TECHNIQUE: CT Angio of the chest was performed.followed by image post processing with coronal, and sagittal MIP reformats. Contrast Volume: Optiray 320, 120 ml FINDINGS: Vasculature: There is homogeneous perfusion of the pulmonary vasculature bilaterally. No intraluminal filling defects or evidence for pulmonary embolus is seen. Airway: The airway is clear. No endobronchial lesion is identified. Lungs: The lungs are clear of acute alveolar opacities, air bronchograms or pulmonary nodules. Pleura: There is no evidence for pleural effusion. There is no evidence for pneumothorax. Mediastinum: There is no evidence for pathologic adenopathy. The heart size is within normal limits. The thoracic aorta is within normal limits. There is no evidence for pericardial effusion. Upper abdomen:The adrenal glands are normal bilaterally. Osseous structures: There is no acute osseous pathology. Impression: 1. No CTA evidence for pulmonary embolus. 2. No acute chest disease. ACT 112: Negative or not required by law. Electronically signed by: Jerry Jolly M.D. 02/18/2022 7:32 AM Venous Doppler Study 02/17/22 21:15 LEFT LOWER EXTREMITY VENOUS DOPPLER CLINICAL HISTORY: left calf swelling, pain COMPARISON STUDY: No previous studies for comparison. TECHNIQUE: Sonography of the deep venous system of the left lower extremity was performed. Compression and augmentation were evaluated. FINDINGS: The left common femoral, superficial femoral and popliteal veins were compressible. Augmentation was normal. Flow was shown within the deep calf vessels. IMPRESSION: No evidence of deep venous thrombus within the left lower extremity. ACT 112: Negative or not required by law. Electronically signed by: Zain Skaggs M.D. 02/18/2022 7:00 AM Abdomen/Pelvis CT 02/18/22 00:57 CT OF THE ABDOMEN AND PELVIS WITHOUT CONTRAST CLINICAL HISTORY: Abdominal pain, nausea and vomiting. COMPARISON STUDY: No previous studies for comparison. TECHNIQUE: Axial images of the abdomen and pelvis were obtained without IV contrast. Images were reviewed in the axial, sagittal, and coronal planes. Automated exposure control was utilized for the study. A dose lowering techn ique was utilized adhering to the principles of ALARA. FINDINGS: Lung bases are unremarkable. No pneumatosis, free air or portal venous gas is present. Sensitivity for detection of urinary calculi is diminished given excreted contrast within the collecting systems, ureters and bladder. There is no hydronephrosis. There is no perinephric infiltration. Evaluation of the abdomen and pelvis is suboptimal on this unenhanced exam. The liver, spleen, adrenal glands, kidneys and pancreas are unremarkable. There is no biliary or pancreatic ductal dilatation. There is no evidence for a bowel obstruction. The appendix is normal. There is no lymphadenopathy or ascites. No acute fracture within the visualized skeletal structures. IMPRESSION: 1. No acute process within the abdomen or pelvis on unenhanced exam. 2. Normal appendix. No bowel obstruction. 3. Excreted contrast within the collecting systems, ureters and bladder from recent chest CT. ACT 112: Negative or not required by law. Electronically signed by: Zani Skaggs M.D. 02/18/2022 8:[address] 02/18/22 00:57 CT tib/fib LT wo con CLINICAL HISTORY: swelling/bruising COMPARISON STUDY: No previous studies for comparison. TECHNIQUE: Axial images of the left tibia and fibula were obtained without IV contrast. Sagittal and coronal reconstructions were viewed. Automated exposure control was utilized for the study. A dose lowering technique was utilized adhering to the principles of ALARA. FINDINGS: There is no acute fracture within the left tibia or fibula. No osseous lesion is identified. No CT evidence for stress fracture. Note is made of nonspecific subcutaneous stranding of the lateral proximal left lower leg, at the level the proximal fibula. No fluid collection is identified. No soft tissue gas is noted. No intramuscular or interfascial fluid is noted. Alignment of the left knee and left ankle is anatomic. Talar dome is intact. IMPRESSION: 1. No osseous abnormality within the left tibia or fibula. No fracture. 2. Mild nonspecific stranding of the lateral proximal left lower leg, as described above. No associated fluid collection. No soft tissue gas. ACT 112: Negative or not required by law. Electronically signed by: Zain Skaggs M.D. 02/18/2022 8:13 AM Medications Administered Current Inpatient Medications Acetaminophen (Acetaminophen 325 Mg Tab) 650 mg PO Q4H PRN PRN Reason: Pain or Fever Stop: 03/20/22 02:40 Last Admin: 02/18/22 10:26 Dose: 650 mg Documented by: Aspirin (Aspirin 81 Mg Ectab) 81 mg PO QAM [facility] Stop: 03/20/22 04:24 Last Admin: 02/18/22 05:38 Dose: 81 mg Documented by: Doxycycline Hyclate (Doxycycline Hyclate 100 Mg Cap) 100 mg PO BID [facility] Stop: 02/25/22 04:24 Last Admin: 02/18/22 05:38 Dose: 100 mg Documented by: Promethazine HCl 12.5 mg/ (Sodium Chloride) 50.5 mls @ 202 mls/hr IV Q6H PRN PRN Reason: Nausea And Vomiting Stop: 03/20/22 01:05 Lisinopril (Lisinopril 5 Mg Tab) 5 mg PO DAILY [facility] Stop: 03/20/22 08:59 Last Admin: 02/18/22 09:15 Dose: 5 mg Documented by: Lorazepam (Lorazepam 2 Mg/1 Ml Vial) 0.25 mg IV Q4H PRN PRN Reason: Anxiety Stop: 03/20/22 01:05 Mirtazapine (Mirtazapine Tab 15 Mg Tab) 30 mg PO HS [facility] Stop: 03/20/22 20:59 Morphine Sulfate (Morphine Sulfate 2 Mg/Ml Carp) 2 mg IV Q4H PRN PRN Reason: Pain Stop: 03/04/22 01:05 Nitroglycerin (Nitroglycerin Sl 0.4 Mg/Tab Tab) 0.4 mg SL Q5M PRN PRN Reason: Chest Pain Stop: 03/20/22 02:40 Olanzapine (Olanzapine 5 Mg Tablet) 15 mg PO HS JULIAN Stop: 03/20/22 20:59 Paroxetine HCl (Paroxetine Hcl 20 Mg Tab) 50 mg PO DAILY JULIAN Stop: 03/20/22 08:59 Last Admin: 02/18/22 09:59 Dose: Not Given Documented by: Polyethylene Glycol (Polyethylene (Miralax) 17 Gm Pack) 17 gm PO DAILY PRN PRN Reason: Constipation Stop: 03/20/22 05:32 Senna/Docusate Sodium (Docusate Sodium/Senna 50/8.6mg Tab) 1 tab PO QAM JULIAN Stop: 03/21/22 08:59 Tramadol HCl (Tramadol Hcl 50 Mg Tablet) 25 - 50 mg PO Q4H PRN PRN Reason: Pain Stop: 03/20/22 01:05
[2022-02-18] MEDS: ACETAMINOPHEN 325 MG TAB PO PRN (19:45)
[2022-02-18] MEDS ORDERED: PARoxetine HCL 20 MG TAB PO SCH (21:00)
[2022-02-18] MEDS ORDERED: OLANZapine 5 MG TABLET PO SCH (21:00)
[2022-02-18] MEDS ORDERED: MIRTAZAPINE TAB 15 MG TAB PO SCH (21:00)
[2022-02-18] MEDS ORDERED: MELATONIN 3 MG TAB PO PRN ×2 (21:21→22:27)
[2022-02-18] MEDS ORDERED: MELATONIN 3 MG TAB PO ONE (22:33)
[2022-02-18 22:56] LABS: Amphetamines+Metham, Urine Neg (Neg); Barbiturates, Urine Neg (Neg); Benzodiazepine, Urine Neg (Neg); Cocaine, Urine Neg (Neg); MDMA (Ecstacy), Urine Neg (Neg); Methadone, Urine Neg (Neg); Opiate, Urine Neg (Neg); Phencyclidine, Urine Neg (Neg)
[2022-02-19 07:56] LABS: Hematocrit (blood only) 41.4 % (42-52); Hemoglobin 14.3 g/dL (14.0-18.0); Mean Corpuscular Hemoglobin 30.2 pg (25-34); Mean Corpuscular Hgb Conc 34.5 g/dL (32-36); Mean Corpuscular Volume 87.5 fL (80-100); Mean Platelet Volume 10.3 fL (7.4-10.4); Platelet Count 240 K/uL (130-400); RDW Coefficient of Variation 14.7 % (11.5-14.5); RDW Standard Deviation 47.1 fL (36.4-46.3); Red Blood Count 4.73 M/uL (4.7-6.1); White Blood Count 6.29 K/uL (4.8-10.8)
[2022-02-19] MEDS: ASPIRIN 81 MG ECTAB PO SCH (08:11)
[2022-02-19] MEDS: lisinopril 5 MG TAB PO SCH (08:11)
[2022-02-19] MEDS: PARoxetine HCL 20 MG TAB PO SCH (08:12)
[2022-02-19] MEDS: DOXYCYCLINE HYCLATE 100 MG CAP PO SCH (08:12)
[2022-02-19] MEDS: ACETAMINOPHEN 325 MG TAB PO PRN (08:25)
[2022-02-19 08:45] LABS: Alanine Aminotransferase 24 U/L (7-52); Albumin Globulin Ratio 1.3 (0.9-2); Albumin Level 4.3 gm/dl (3.4-5.0); Alkaline Phosphatase 79 U/L (34-104); Anion Gap 7 (3-11); BUN Creatinine Ratio 13.8 (10-20); Bilirubin,Total 0.9 mg/dl (0.2-1.0); Blood Urea Nitrogen 12 mg/dl (6-23); C Reactive Protein < 0.50 mg/dl (0-0.5); Calcium 9.8 mg/dl (8.5-10.1); Carbon Dioxide 25 mmol/L (21-32); Chloride 103 mmol/L (98-107); Creatine Kinase 185 U/L (30-223); Creatinine Clr Calc Pharmacy 116.8 ml/min; Est GFR (African American) 131.4 ml/min; Est GFR (Non-African American) 113.4 ml/min; Globulin 3.2 gm/dl (2.5-4.0); Glucose 95 mg/dl (70-99(Fasting)); Sodium 135 mmol/L (136-145); Total Protein 7.5 gm/dl (6.0-8.3)
[2022-02-19] MEDS ORDERED: DOCUSATE SODIUM/SENNA 50/8.6MG TAB PO SCH (09:00)
[2022-02-19 09:38] LABS: Potassium 4.1 mmol/L (3.5-5.1)
[2022-02-19] MEDS ORDERED: DOBUTamine HCL 12.5 MG/ML 20 ML VIAL IV ONE (09:52)
[2022-02-19] MEDS ORDERED: ATROPINE SULFATE 0.1 MG/ML 10ML SYR IV ONE (09:52)
[2022-02-19] MEDS ORDERED: METOPROLOL TARTRATE 1 MG/ML VIAL IV ONE (09:52)
--- NOTE | 2022-02-19 14:43 | Discharge Summary ---
Date of Service February 19, 2022 Admission HPI Per Admitting Provider History obtained from patient and records. Medical history significant for hypertension, anxiety/mood disorder, internal hemorrhoids, past tobacco abuse. 8 months history of intermittent achy chest pain complaints with occasional shortness of breath lasting less than an hour. Can happen even at rest. Symptoms almost daily. Patient claims he was put on the night monitor at the [facility]. He was told that he had abnormal heartbeat. No cardiology consultations as per patient. Abdominal pain complaints in the last few weeks with constipation. Daily hematochezia attributed to internal hemorrhoids from outpatient colonoscopy from 2019 as per patient. Patient claims he lost 10 pounds in 2 weeks. Patient also not this left leg swelling and bruising. Not sure about trauma. Patient brought to the ER for evaluation. Currently chest pain-free. 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 [facility] Admission Exam Per Admitting Provider GENERAL: Slightly anxious, slightly uncomfortable, no respiratory distress SKIN: Normal color, warm HEENT: [place] palpebral conjunctivae, no ptosis, dry buccal mucosa NECK : Supple, no tenderness CHEST : CTA, no tenderness HEART : RRR, no obvious murmurs ABDOMEN: Some distention, central abdominal tenderness EXTREMITIES : Focal LLE erythema anterior aspect with bruising noted over the calf, minimal LLE tenderness NEUROLOGIC : Coherent, no facial asymmetry, no other gross focality Principal Diagnosis Chest pain, leg pain Discharge Exam General: Lying comfortably in bed, not in distress, on room air HEENT: EOMI, LUIS MIGUEL, MMM Chest: Clear breath sounds bilaterally, no wheezes or crackles CVS: Regular rate and rhythm, normal heart sounds, no murmur Abdomen: Soft, non tender, not distended, normal bowel sounds Neuro: Awake, alert, oriented, conversing well, non focal Extremities: No cyanosis, clubbing or edema. Mild left calf tenderness. No cellulitis or rash. He is [facility] pen[facility] and cuffed. Officers at bedside. Discharge Data Allergies Allergy/AdvReac Type Severity Reaction Status Date / Time No Known Allergies Allergy Unverified 02/17/22 21:44 Consultations 02/17/22 23:02 ED Decision to Admit Stat 02/18/22 02:41 Consult Cardiology Routine Ordered Studies 02/17/22 20:24 CT angio chest PE protocol Urgent 02/17/22 21:15 US venous doppler LE LT Urgent 02/18/22 00:57 CT abd pelvis wo con Urgent CT tib/fib LT wo con Urgent Hospital Course (1) Chest pain: Chest pain- atypical, seen by cardio, echo and stress test negative. UDS negative. COVID negative, CTA chest negative for PE or acute disease. Cleared by cardio for discharge. Leg pain- likely MSK. CT leg and US LE with no acute finding, no DVT. CK normal, procal normal, no leucocytosis. TSH normal No evidence of cellulitis, rash or infection. No need for ABx. States he had an impact [employer]W MAN during play- likely musculoskeletal. Tylenol, NSAIDs, Ice as needed. F/u with PCP Spoke with Dr Campuzano from [facility] and gave signout. Okay to [facility] back [facility]. Total Time Total Time Spent Total Time Spent (In Minutes): 32 Discharge Plan Discharge Items Patient Disposition: [facility] Reason For Visit: CP Discharge Diagnosis: Chest pain Activity: Resume your previous activity Non-emergency contact: Primary Care Provider Call non-emergency contact if: you have any medication questions, your symptoms worsen, your pain is concerning for you and you have a fever Follow-up/Referrals: Chantal YANES [Primary Care Provider] - Diet: Regular Addtl Attending Provider Instructions: You were here for chest pain. Your echo and stress test have been negative. You were seen by cardiology and cleared for discharge back. Your leg pain is likely musculoskeletal. Your blood work, CT and ultrasound have been negative. There is no evidence of infection and you do not need any antibiotics as of now. You can use pain medications or ice as needed for the pain Follow with your doctor if the pain does not improve or you have fever, chills, rash/redness in your legs. Pending Studies at Discharge: No Skilled Items Patient informed of condition?: No DNR: No Discharge Level of Care: Other Communicable Disease: No Discharge Prognosis: Stable Lines: None Urinary Catheter: No Medications and DC Order Prescriptions: Continued paroxetine HCl 30 mg Tablet 30 mg PO HS RF: 0 paroxetine HCl 20 mg Tablet 20 mg PO DAILY RF: 0 mirtazapine 30 mg Tablet 30 mg PO HS RF: 0 diclofenac sodium 25 mg Tablet,Delayed Release (Dr/Ec) 25 mg PO TID PRN (Reason: Pain) RF: 0 olanzapine 15 mg Tablet 15 mg PO HS RF: 0 lisinopril 5 mg Tablet 5 mg PO DAILY RF: 0 Admission Data Admit Date/Time: 02/18/22 01:04 Attending Provider: Dariusz Fortune Admit Provider: Andi Amaya Primary Care Provider: Chantal YANES Other Providers: Andi Amaya ; Jason Brunner ; Manuelito Abad ; Taras Phillip ; Octavio Meraz ; Cayetano Vicente ; Jeffrey Carrillo ; Lizzeth Hein ; Alessia Lord ; Haley Geiger ; Mike Cruz Other Interventions: Discharge Summary Assessment (RN) Last Done: 02/19/22 11:45
--- NOTE | 2022-02-19 15:16 | Electrocardiogram Report ---
Test Reason : Blood Pressure : / mmHG Vent. Rate : 060 BPM Atrial Rate : 060 BPM P-R Int : 174 ms QRS Dur : 094 ms QT Int : 412 ms P-R-T Axes : 027 078 052 degrees QTc Int : 412 ms Normal sinus rhythm ST elevation, consider early repolarization, pericarditis, or injury Abnormal ECG When compared with ECG of 17-FEB-2022 20:37, No significant change was found Confirmed by Todd Wright ([id number]) on 02/19/2022 3:16:18 PM Referred By: Chantal SCI Confirmed By:Todd Wright
== END 2022-02-19 13:22 ==
LOC: ED 20:17 → 2S 20:17